=== PATIENT | male | born 1990 | race Caucasian/White ===

== ENCOUNTER 2019-02-13 17:08 | Emergency (ER) | payer OTHER ==
--- NOTE | 2019-02-13 17:31 | ED ---
Palpitations / Dysrhythmia - HPI Summary HPI Summary: 28-year-old male with no significant past medical history presents to the emergency department today complaining of 2 days of episodic palpitations and feeling lightheaded. Patient is unsure what is causing his symptoms but he states he has had episodes like this in the past with a negative workup. Patient denies syncope but endorses feelings of palpitations, lightheadedness, "not feeling well". Patient denies recent recreational drug use but endorses having "a few drinks last evening". Patient denies new stressors but states "I have a lot of stress in my life". Patient denies fever, chest pain, shortness of breath, diaphoresis, syncope, changes in bowel habits, confusion, recent trauma. Family history and social history are noncontributory. - History of Current Complaint Chief Complaint: EDHypertension Hx Obtained From: Patient Onset/Duration: Gradual Onset, Lasting Days Timing: Constant Severity Initially: Moderate Severity Currently: Moderate Character: Fast Aggravating: Exertion, Caffeine Alleviating: Rest Associated Signs & Symptoms: Lightheadedness, Dizzy - Allergy/Home Medications Allergies/Adverse Reactions: Allergies Allergy/AdvReac Type Severity Reaction Status Date / Time No Known Allergies Allergy Verified 02/13/19 17:13 Home Medications: Home Medications NK [No Home Medications Reported] 02/13/19 [History Confirmed 02/13/19] PMH/Surg Hx/FS Hx/Imm Hx Infectious Disease History: No Infectious Disease History: Denies: Traveled Outside the [place] in Last 30 Days Review of Systems Constitutional: Negative Eyes: Negative ENT: Negative Positive: Palpitations. Negative: Chest Pain Respiratory: Negative Gastrointestinal: Negative Genitourinary: Negative Musculoskeletal: Negative Skin: Negative Neurological: Negative Positive: Anxious All Other Systems Reviewed And Are Negative: Yes Physical Exam Triage Information Reviewed: Yes Vital Signs On Initial Exam: Initial Vitals Temp Pulse Resp BP Pulse Ox 99.7 F 103 18 186/108 98 02/13/19 17:10 02/13/19 17:10 02/13/19 17:10 02/13/19 17:10 02/13/19 17:10 Vital Signs Reviewed: Yes Appearance: Positive: Well-Appearing, No Pain Distress, Well-Nourished Skin: Positive: Warm, Skin Color Reflects Adequate Perfusion Eyes: Positive: EOMI, WENDY ENT: Positive: Hearing grossly normal Respiratory/Lung Sounds: Positive: Clear to Auscultation, Breath Sounds Present Cardiovascular: Positive: Tachycardia, S1, S2 Abdomen Description: Positive: Nontender, Soft. Negative: Distended, Guarding Bowel Sounds: Positive: Present Musculoskeletal: Positive: Strength/ROM Intact Neurological: Positive: Sensory/Motor Intact, Alert, Oriented to Person Place, Time, Normal Gait, Speech Normal Psychiatric: Positive: Anxious AVPU Assessment: Alert Procedures - Sedation Patient Received Moderate/Deep Sedation with Procedure: No Diagnostics - Vital Signs Vital Signs Temp Pulse Resp BP Pulse Ox 02/13/19 17:10 99.7 F 103 18 186/108 98 - Laboratory Result Diagrams: 02/13/19 18:02 02/13/19 18:02 Lab Statement: Any lab studies that have been ordered have been reviewed, and results considered in the medical decision making process. Course/Dx - Course Course Of Treatment: Patient was evaluated in the emergency department for palpitations. Patient seen and examined his vitals are stable and he is afebrile. EKG was concerning. Laboratory studies returned within normal limits. Troponin 0.00. Heart score 1. Patient is to follow-up with his primary care provider in 5 days for further evaluation and management of his symptoms. There appeared to be no life-threatening pathology causing his symptoms. - Diagnoses Differential Diagnosis/HQI/PQRI: Positive: Cardiomyopathy, Medication Induced, Panic Disorder, Paroxymal SVT, Other - anxiety, substance abuse, dehydration Provider Diagnoses: Heart palpitations Discharge ED - Sign-Out/Discharge Documenting (check all that apply): Patient Departure - Discharge Plan Condition: Stable Disposition: HOME Patient Education Materials: Heart Palpitations (ED) Referrals: Shanique Lerner MD [Primary Care Provider] - 5 Days Additional Instructions: You were seen in the emergency department today for palpitations. There appears to be no life threatening pathology causing your symptoms which requires intervention at this time. I am unsure what's causing your symptoms however, cardiac origin cannot be ruled out. Please follow up with your primary care provider or medical information specialist for further evaluation and management of your symptoms and for possible outpatient echocardiogram and stress test. Please return to the emergency department immediately if you develop any new or worsening symptoms. - Billing Disposition and Condition Condition: STABLE Disposition: Home
[2019-02-13] MEDS ORDERED: Lactated Ringers 1000 ML Bag* 1,000 ML IV SCH (18:00)
[2019-02-13 18:08] LABS: ABS Lymphocytes 1.4 10^3/ul (1.0-4.8); ABS Monocytes 0.5 10^3/ul (0-0.8); ABS Neutrophils 4.7 10^3/ul (1.5-7.7); Eosinophil % 0.5 %; Hematocrit 45 % (42-52); Hemoglobin 15.5 g/dL (14.0-18.0); Lymphocyte % 20.7 %; Mean Corpuscular HGB Conc 34 g/dL (31-36); Mean Corpuscular Hemoglobin 30 pg (27-31); Mean Corpuscular Volume 87 fL (80-94); Mean Platelet Volume 8.5 fL (7.4-10.4); Platelet Count 189 10^3/uL (150-450); Red Blood Count 5.22 10^6 /uL (4.18-5.48); Red Cell Distribution Width 13 % (10-15); White Blood Count 6.6 10^3/uL (3.5-10.8)
[2019-02-13 18:34] LABS: Albumin 4.9 g/dL (3.2-5.2); BUN/Creatinine Ratio 17.5 (8-20); Calcium 9.8 mg/dL (8.6-10.3); EGFR Non-African American 90.9 (>60); Globulin 2.5 g/dL (2-4); Magnesium 1.8 mg/dL (1.9-2.7); Potassium 4.3 mmol/L (3.5-5.0); Total Bilirubin 0.7 mg/dL (0.2-1.0); Total Protein 7.4 g/dL (6.4-8.9)
[2019-02-13 18:48] LABS: TSH (Thyroid Stimulating Horm) 0.64 mcIU/mL (0.34-5.60)
[2019-02-13 19:46] LABS: Urine Appearance Clear; Urine Bilirubin Negative (Negative); Urine Blood Negative (Negative); Urine Color Straw; Urine Glucose Negative (Negative); Urine Ketones Negative (Negative); Urine Nitrite Negative (Negative); Urine Protein Negative (Negative); Urine Specific Gravity 1.005 (1.010-1.030); Urine Urobilinogen Negative (Negative)
[2019-02-13 20:01] LABS: Urine Benzodiazepine Screen None Detected (None Detect); Urine Opiates Screen None Detected (None Detect)
[2019-02-13] MEDS ORDERED: LORazepam TAB(*) 1 MG PO ONE (20:29)
[2019-02-13 21:02] VITALS: BP 130/75
== END 2019-02-13 20:55 | disposition home or self-care (01) ==
LOC: ED 17:08
DX: R00.2 Palpitations (principal)
CPT/HCPCS: 36415; 80053; 80307; 81003; 83735; 84443; 84484; 85025; 93005; 96360; 99284; A9270-GY